=== PATIENT | male | born 1960 | race Caucasian/White ===

== ENCOUNTER 2019-01-12 06:05 | Inpatient (IN) | payer OTHER ==
[~2019-01-12] VITALS: Ht 177.8 cm; Wt 89.8 kg
[2019-01-12 06:05] VITALS: BP 166/110
--- NOTE | 2019-01-12 06:05 | NUR ---
AMBULATED FROM [facility] TO BED 11. HYPERTENSIVE.
--- NOTE | 2019-01-12 06:20 | NUR ---
PT BIBA C/O CP, SOB AND COUGH. PT STATES HE HAD SUDDEN ONSET OF CP W/ SOB WHILE AT WORK THIS MORNING, PT STATES NON-PRODUCTIVE COUGH X22 DAYS, +NAUSEA. PT STATES 0/10 PAIN AT THIS TIME. PT STATES HE HAS NOT TAKEN HYPERTENSIVE MEDICATION IN MONTHS. --SKIN WARM, DRY AND INTACT. CLEAR SPEECH. CAP REFIL <3. MOIST MUCOUS MEMBRANES. DENIES CP, OR LOC AT THIS TIME. AAOX4. LUNG SOUND CLEAR BL. BREATHING EQUAL AND UNLABORED. NO EDEMA PRESENT. --PT IN GOWN, IN BED; BED IN LOWER LOCKED POSITION. ER MD MADE AWARE OF PT STATUS. WILL CONTINUE TO MONITOR. PMH: HTN RX: PT DOES NOT RECALL NAME
--- NOTE | 2019-01-12 06:20 | NUR ---
EKG PERFORMED AT BEDSIDE WITH NURSE PRESENT. PT COVERED IN GOWN DURING PROCEDURE.
[2019-01-12 06:30] LABS: BASOPHILS # (AUTO) 0.1 K/uL (0.00-0.22); BASOPHILS % (AUTO) 0.6 % (0.0-2.0); EOSINOPHILS # (AUTO) 0.3 K/uL (0-0.4); EOSINOPHILS % (AUTO) 2.1 % (0.0-4.0); HEMATOCRIT 41.9 % (36-52); HEMOGLOBIN 14.2 g/dL (12.0-18.0); LYMPHOCYTES # (AUTO) 1.3 K/uL (2.0-11.5); LYMPHOCYTES % (AUTO) 9.8 % (20.5-51.1); MEAN CORPUSCULAR HEMOGLOBIN 26 pg (27-31); MEAN CORPUSCULAR HGB CONC 34 g/dL (33-37); MEAN CORPUSCULAR VOLUME 77.9 fL (80-94); MONOCYTES # (AUTO) 0.6 K/uL (0.8-1.0); MONOCYTES % (AUTO) 4.3 % (1.7-9.3); NEUTROPHILS # (AUTO) 11.2 K/uL (1.8-7.7); NEUTROPHILS % (AUTO) 83.2 % (42.2-75.2); PLATELET COUNT (AUTO) 296 K/uL (140-450); RED BLOOD CELL COUNT(AUTO) 5.37 MIL/uL (4.20-6.10); RED CELL DISTRIBUTION WIDTH 13.1 % (11.6-13.7); WHITE BLOOD COUNT (AUTO) 13.5 K/uL (4.8-10.8)
[2019-01-12] MEDS ORDERED: METOPROLOL 5 MG/5 ML VIAL IVP ONE (06:30)
[2019-01-12] MEDS ORDERED: ASPIRIN 81 MG TAB.CHEW PO ONE (06:30)
[2019-01-12 06:39] LABS: ANION GAP 14.8 (8-16); CARBON DIOXIDE 25.2 mmol/L (21-32); CREATININE 0.9 mg/dL (0.7-1.3)
[2019-01-12 06:45] LABS: ALBUMIN 3.5 g/dL (3.4-5.0); TOTAL BILIRUBIN 0.4 mg/dL (0.0-1.0)
[2019-01-12 07:13] LABS: PROTHROMBIN TIME 9.9 secs (10.8-13.4)
--- NOTE | 2019-01-12 07:30 | NUR ---
Pt report given to [facility] Brown. Transfer of care at this time.
--- NOTE | 2019-01-12 07:40 | NUR ---
Patient will be admitted to care of Dr. Prabhakar. Admited to Med Surg. Will go to room 112 B. Belongings list completed. Report to [facility] Francisco.
[2019-01-12] MEDS: NACL 0.9% 1,000 ML IV SCH (07:57)
[2019-01-12] MEDS ORDERED: DOCUSATE SODIUM 100 MG GELCAP PO PRN (08:00)
[2019-01-12] MEDS ORDERED: HYDROcodone/APAP 5/325 MG 1 TAB TAB PO PRN (08:00)
[2019-01-12] MEDS ORDERED: ONDANSETRON 4 MG/2 ML VIAL IM/IVP PRN (08:00)
[2019-01-12] MEDS ORDERED: MORPHINE SULFATE 2 MG/ML SYR IVP PRN (08:00)
[2019-01-12] MEDS ORDERED: ACETAMINOPHEN 325 MG TAB PO PRN (08:00)
--- NOTE | 2019-01-12 08:29 | NUR ---
PATIENT HAS BEEN SCREENED AND CATEGORIZED MODERATE NUTRITION RISK. PATIENT WILL BE SEEN WITHIN 3-5 DAYS OF ADMISSION. 01/14/19[address]
[2019-01-12] MEDS ORDERED: LISINOPRIL 5 MG TAB PO SCH (09:00)
[2019-01-12] MEDS: ATORVASTATIN 20 MG TAB PO SCH (10:07)
[2019-01-12] MEDS: METOPROLOL 25 MG TAB PO SCH ×2 (10:07→20:33)
--- NOTE | 2019-01-12 10:09 | NUR ---
ADMINISTERED MEDS TO PT ORDERED. PT STABLE. NO SIGN OF DISTRESS NOTED. WILL CONTINUE TO MONITOR PT.
[2019-01-12] MEDS ORDERED: hydrALAZINE 20 MG/ML VIAL IVP PRN (10:10)
[2019-01-12] MEDS ORDERED: MECLIZINE 25 MG TAB PO PRN (10:50)
--- NOTE | 2019-01-12 11:24 | NUR ---
STARTED IVF TO PT. TOLERATING WELL. NO SIGN OF DISTRESS NOTED. CALL LIGHT WITHIN REACH. MRSA SWAB COLLECTED. WILL CONTINUE TO MONITOR PT.
[2019-01-12 12:00] VITALS: BP 131/81
[2019-01-12 13:15] LABS: FREE T4 (FREE THYROXINE) 1.18 ng/dL (0.76-1.46); THYROID STIMULATING HORMONE 1.22 uIU/mL (0.34-3.74)
--- NOTE | 2019-01-12 14:08 | NUR ---
CHECKED ON PT. SLEEPING AT THIS TIME. DENIES ANY PAIN AT THIS TIME. WILL CONTINUE TO MONITOR PT.
[2019-01-12 16:00] VITALS: BP 135/87
[2019-01-12] MEDS ORDERED: BENZONATATE 100 MG CAPLF PO PRN (18:00)
--- NOTE | 2019-01-12 19:30 | NUR ---
RECEIVED BEDSIDE REPORT FROM DAY SHIFT NURSE FOR CONTINUITY OF CARE. PATIENT IS AWAKE, ALERT, RESPIRATION EVEN UNLABORED ON ROOM AIR. DENIES PAIN. SKIN IS WARM AND DRY. IV PATENT AND INTACT. PLAN OF CARE WAS DISCUSSED. ALL SAFETY MEASURES ARE IN PLACE. BED IS AT LOW POSITION. CALL LIGHT WITHIN REACH AND ABLE TO VERBALIZES ITS USE. WILL CONTINUE TO MONITOR.
--- NOTE | 2019-01-12 19:34 | NUR ---
PT ENDORSED TO PM NURSE AT BEDSIDE. PT STABLE . URINE SAMPLE TO BE SENT TO THE LAB.
[2019-01-12 20:00] VITALS: BP 155/90
--- NOTE | 2019-01-12 20:00 | NUR ---
INITIAL ASSESSMENT DONE. ALL SCHEDULE MEDS WERE GIVEN PER ORDER. PATIENT TOLERATED WELL. NO ASE NOTED. WILL CONTINUE TO MONITOR.
[2019-01-12 20:54] LABS: APPEARANCE,URINE CLEAR (CLEAR); BILIRUBIN,URINE NEGATIVE (NEGATIVE); BLOOD, URINE NEGATIVE (NEGATIVE); COLOR,URINE YELLOW (YELLOW); LEUKOCYTE ESTERASE ,URINE NEGATIVE (NEGATIVE); NITRITE, URINE NEGATIVE (NEGATIVE); PH,URINE 7.5 (5.0-9.0); UGLUCOSE NEGATIVE (NEGATIVE)
[2019-01-12 21:00] LABS: BARBITURATE, URINE NEG. ng/ml (NEG <=200); BENZODIAZEPINE, URINE NEG. ng/mL (NEG <=200); CANNABINOID, URINE NEG. ng/mL (NEG <=50); COCAINE, URINE NEG. ng/mL (NEG <=300); OPIATE, URINE NEG. ng/mL (NEG <=2000); PHENCYCLIDINE SCREEN,URINE NEG. ng/mL (NEG <=25)
--- NOTE | 2019-01-12 22:00 | NUR ---
PATIENT LYING IN BED WATCHING TV. RESPIRATION EVEN UNLABORED ON ROOM AIR. NO DISTRESS NOTED. CALL LIGHT WITHIN REACH. WILL CONTINUE TO MONITOR
[2019-01-13] VITALS: BP 128/87
--- NOTE | 2019-01-13 | NUR ---
VITALS WERE TAKEN. PATIENT CONDITION STABLE. NO DISTRESS NOTED. WILL CONTINUE TO MONITOR.
[2019-01-13] MEDS: NACL 0.9% 1,000 ML IV SCH (01:22)
--- NOTE | 2019-01-13 02:00 | NUR ---
CHECKED PATIENT. PATIENT SLEEPING RESPIRATION EVEN UNLABORED ON ROOM AIR. NO DISTRESS NOTED. WILL CONTINUE TO MONITOR
[2019-01-13 04:00] VITALS: BP 131/88
--- NOTE | 2019-01-13 04:00 | NUR ---
VITALS WERE TAKEN. PATIENT CONDITION STABLE. NO DISTRESS NOTED. WILL CONTINUE TO MONITOR
[2019-01-13] MEDS ORDERED: PANTOPRAZOLE 40 MG TABEC PO SCH (06:30)
[2019-01-13 06:41] LABS: BASOPHILS % (AUTO) 0.4 % (0.0-2.0); EOSINOPHILS # (AUTO) 0.4 K/uL (0-0.4); EOSINOPHILS % (AUTO) 3.5 % (0.0-4.0); HEMATOCRIT 41.9 % (36-52); LYMPHOCYTES # (AUTO) 1.4 K/uL (2.0-11.5); LYMPHOCYTES % (AUTO) 13.2 % (20.5-51.1); MEAN CORPUSCULAR HEMOGLOBIN 26 pg (27-31); MEAN CORPUSCULAR HGB CONC 33 g/dL (33-37); MONOCYTES # (AUTO) 0.6 K/uL (0.8-1.0); MONOCYTES % (AUTO) 5.3 % (1.7-9.3); NEUTROPHILS # (AUTO) 8.1 K/uL (1.8-7.7); NEUTROPHILS % (AUTO) 77.6 % (42.2-75.2); PLATELET COUNT (AUTO) 277 K/uL (140-450); RED CELL DISTRIBUTION WIDTH 12.9 % (11.6-13.7); WHITE BLOOD COUNT (AUTO) 10.5 K/uL (4.8-10.8)
[2019-01-13 06:42] LABS: ANION GAP 11.7 (8-16); CARBON DIOXIDE 26.5 mmol/L (21-32); CREATININE 0.9 mg/dL (0.7-1.3); POTASSIUM 4.2 mmol/L (3.5-5.1)
[2019-01-13 06:43] LABS: MAGNESIUM 2.1 mg/dL (1.8-2.4); PHOSPHORUS 2.6 mg/dL (2.5-4.9)
[2019-01-13 06:46] LABS: CHOL/HDL RATIO 4.2 (1-4.5)
--- NOTE | 2019-01-13 07:28 | NUR ---
ENDORSED PATIENT TO DAY SHIFT NURSE FOR CONTINUITY OF CARE. PATIENT STABLE AT THIS TIME.
--- NOTE | 2019-01-13 07:29 | NUR ---
RECEIVED REPORT KATHRYN Nicholson[M NURSE AT [facility]. PT LYING ON HIS BED COMFORTABLY. AWAKE AND ALERT. STATES HAD BM THIS AM. IVF INFUSING WELL. CALL LIGHT WITHIN PT REACH. INFORMED PT TO USE CALL LIGHT FOR ANY HELP. WILL CONTINUE TO MONITOR PT.
[2019-01-13 08:00] VITALS: BP_SYST 131; BP_SYST 153; BP_DIAS 87; BP_DIAS 95
[2019-01-13] MEDS: ATORVASTATIN 20 MG TAB PO SCH (08:40)
[2019-01-13] MEDS ORDERED: LISINOPRIL 5 MG TAB PO SCH (09:00)
[2019-01-13] MEDS ORDERED: ASPIRIN 81 MG TAB.CHEW PO SCH (09:00)
--- NOTE | 2019-01-13 09:30 | NUR ---
ADMINISTERED MEDS TO PT ORDERED. NO SIGN OF DISTRESS NOTED. ALL SAFETY MEASURE IN PLACE. POSSIBLE DISCHARGE TODAY.
[2019-01-13] MEDS ORDERED: LISI-424 PO (09:59)
[2019-01-13] MEDS ORDERED: BENZ100C6 PO (09:59)
--- NOTE | 2019-01-13 10:30 | NUR ---
CHECKED ON PT. BP 151/91. MD TO INPUT NEW ORDER FOR BP. WILL DISCHARGE PT WHEN HIS BP IS IN NORMAL RANGE. WILL CONTINUE TO MONITOR VS OF PATIENT.
[2019-01-13] MEDS ORDERED: amLODIPine 5 MG TAB PO SCH (11:00)
--- NOTE | 2019-01-13 11:02 | NUR ---
ADMINISTERED AMLODIPINE TO PT. WILL CHECK BP AGAIN . FAMILY AT BEDSIDE. NO SIGN OF DISTRESS NOTED. WILL CONTINUE TO MONITOR PT.
[2019-01-13 12:00] VITALS: BP 152/82
[2019-01-13 12:39] VITALS: BP 138/83
--- NOTE | 2019-01-13 13:10 | NUR ---
PT LEFT HOME WITH FAMILY MEMBER. PT STABLE AND WALKED HIMSLEF OUT OF THE HOSPITAL PT GIVEN DISCHARGE PACKET WITH PRESCRIPTION. DISCHARGE EDUCATION PROVIDED, TO FOLLOW UP WITH APPOINTMENT MADE BY MD AND ABSTIAN FROM [facility]. TO TAKE MEDS PRESCRIBED. VERBALIZED UNDERSTANDING. PT STABLE.
[2019-01-14] MEDS ORDERED: amLODIPine 5 MG TAB PO SCH (09:00)
== END 2019-01-13 13:10 | disposition home or self-care (01) | DRG 206 ==
LOC: MED 06:05 → MTU 07:01
PROVIDERS: ADMIT General Practice; ATTEND General Practice
DX: M94.0 Chondrocostal junction syndrome [Tietze] (principal); I10 Essential (primary) hypertension; E78.5 Hyperlipidemia, unspecified; D72.829 Elevated white blood cell count, unspecified; F43.9 Reaction to severe stress, unspecified; Z91.19 Patient's noncompliance with other medical treatment and regimen; Z82.49 Family history of ischemic heart disease and other diseases of the circulatory system
CPT/HCPCS: 36415; 71045; 80048; 80053; 80305; 81003; 82150; 83036; 83690; 83735; 83880; 84100; 84439; 84443; 84484; 85025; 85610; 85730; 87081; 87086; 93005; 96374; 99285; J1644; J3490; J7030; Q0092